=== PATIENT | male | born 1965 | race Caucasian/White ===

== ENCOUNTER → 2016-04-14 | Outpatient (CLI) | payer OTHER ==
--- NOTE | 2016-04-14 08:22 | CT ---
EXAMINATION TYPE: CT sinus wo con DATE OF EXAM: 04/14/2016 7:34 AM COMPARISON: NONE HISTORY: Chronic [id number] DLP: 544.[address] of the paranasal sinuses was performed in the axial and coronal planes. Bone and soft tissue settings are submitted. Noted are changes of medial maxillary antrectomy bilaterally and partial ethmoidectomy. There is near complete opacification of the right maxillary sinus with mucoperiosteal thickening of t he left maxillary sinus. There is near complete opacification of the ethmoid and frontal sinuses. Mod erate opacification is noted of the sphenoid sinuses. Underlying polyposis is not excluded. The nasal septum is midline. No bony destructive changes are seen within the field of view. IMPRESSION: Severe pansinusitis. Underlying polyposis is not excluded.
== END | disposition home or self-care (01) ==
LOC: RADCTMAIN 07:04
PROVIDERS: ATTEND Otolaryngology
DX: J32.4 Chronic pansinusitis (principal); J32.9 Chronic sinusitis, unspecified
CPT/HCPCS: 70486

== ENCOUNTER 2016-05-14 09:35 | Day surgery (SDC) | payer OTHER ==
[2016-05-13 07:43] VITALS: BMI 26.6
[~2016-05-14 09:35] MED LIST: DEXAMETHASONE SOD PHOSPHATE 10 MG/ML 1 ML VIAL IV ONE; DEXAMETHASONE SOD PHOSPHATE 4 MG/ML 1 ML VIAL IV ONE; FAMOTIDINE 20 MG/2 ML VIAL IV ONE; LACTATED RINGERS 1,000 ML IV SCH; MIDAZOLAM 2 MG/2 ML VIAL IV PRN; ONDANSETRON 4 MG/2 ML VIAL IVP ONE; ceFAZolin 1,000 MG in DEXTROSE/WATER 1 50ML.BAG IV ONE
[2016-05-14] MEDS ORDERED: LACTATED RINGERS 1,000 ML IV ONE (09:54)
[2016-05-14] MEDS: OXYMETAZOLINE 0.05% NASL SPRAY 15 ML NASAL ONE ×5 (09:55→10:14)
[2016-05-14] MEDS ORDERED: LIDOCAINE 1%-EPI 1:100,000 20 ML VIAL SUBMUCOSAL ONE ×3 (10:37→11:00)
[2016-05-14] MEDS ORDERED: SUCCINYLCHOLINE CHLORIDE 100 MG/5 ML SYR IV ONE (10:38)
[2016-05-14] MEDS ORDERED: GLYCOPYRROLATE 0.2 MG/ML 2 ML VIAL ONE (10:38)
[2016-05-14] MEDS ORDERED: fentaNYL (PF) 50 MCG/ML 2 ML AMP ONE (10:38)
[2016-05-14] MEDS ORDERED: MIDAZOLAM 2 MG/2 ML VIAL ONE (10:38)
[2016-05-14] MEDS ORDERED: PROPOFOL 10 MG/ML 20 ML VIAL IV ONE (10:38)
[2016-05-14] MEDS ORDERED: LIDOCAINE 1% INJ 10MG/ML (20 ML MDV) ONE (10:38)
--- NOTE | 2016-05-14 11:49 | P.OP ---
Date of Procedure: 05/14/16 Preoperative Diagnosis: Chronic sinusitis Sinonasal polyposis Inferior turbinate hypertrophy Postoperative Diagnosis: Same Procedure(s) Performed: Bilateral endoscopic sinus surgery with polypectomy including bilateral maxillary antrostomy with removal of tissue from the maxillary sinuses, bilateral anterior and posterior ethmoidectomy, balloon sinus plasty of the bilateral sphenoid and frontal sinuses with exploration Outfracture and submucous resection of the inferior turbinates Anesthesia: MATHEUS Surgeon: Andrae Melissa Estimated Blood Loss (ml): 20 Pathology: other (Sinus contents/polyps) Condition: stable Disposition: PACU Indications for Procedure: This is a 51-year-old white male underwent septoplasty and endoscopic sinus surgery with polypectomy about 10 years ago and he's had recurrence of polyps with nasal congestion and nasal airway obstruction as well as intermittent sinusitis. Computed tomography scan shows evidence of previous surgery as well as evidence of inflammation and chronic sinusitis throughout the sinuses less so in the sphenoid sinuses Operative Findings: Inferior turbinate hypertrophy, sinonasal polyps throughout the sinuses especially in the middle meatus and ethmoid sinuses Description of Procedure: The patient was brought in the operative suite and placed in a supine position. Patient underwent induction of general anesthesia with oral endotracheal intubation without difficulty. The patient was prepped and draped in usual aseptic fashion. Orbits were in the operating field for monitoring throughout the case. Computed tomography scan on computer screen for review also throughout the case. 1% lidocaine with 1 100,000 epinephrine was infused submucosally lateral nasal morse anterior tips the middle turbinates and polyps themselves. Instructions inferior turbinates were infractured with [place] elevator partial submucous resection inferior turbinates performed with the Cob[place] wand ablating a portion of the soft tissue and then outfractured with the [place] elevator. Full 0 endoscopic evaluation performed bilaterally. Polypectomy was performed with the microdebrider initially medial to the middle turbinate on the left taking care not to approach the skull base. The superior turbinate was identified and left intact. The middle turbinate was then medialized with the [place] elevator. Maxillary ostium was located and was patent. There were polyps in the maxillary sinus which were removed. Anterior and posterior ethmoidectomy with polypectomy was performed from anterior to posterior with the roof the anterior ethmoid air cells cleaned with up-biting [place] forceps. Balloon sinus plasty was then performed in the frontal and sphenoid sinuses with the entellus light guided system using the anatomic landmarks and the lighting to insure localization. The sinuses were then explored with 30 endoscope. There were some small polyps removed endoscopically with straight and up-biting [place] forceps and suction. Once this was completed on the left attention was turned to the right where the procedures were followed as they had been on the right including polypectomies in the maxillary sinus anterior posterior ethmoidectomy balloon sinus plasty with exploration of the frontal and sphenoid sinuses with removal of polyps. Once this was completed a combination of standard and firm nasal pore nasal dressings were placed in the middle meatus. The patient was suctioned in oral gastric fashion. The patient allowed to emerge from general anesthesia and tolerated well was extubated operating suite and transferred to postop recovery area in satisfactory condition.
[2016-05-14 11:57] VITALS: TEMP 96.9
[2016-05-14 12:01] VITALS: RESP 16
[2016-05-14] MEDS: HYDROmorphone 1 MG/ML 1 ML SYRINGE IVP PRN ×2 (12:27→12:32)
[2016-05-14 13:54] VITALS: BP 133/87; PULSE 57
== END 2016-05-14 14:15 | disposition home or self-care (01) ==
LOC: OR 09:35
PROVIDERS: ATTEND Otolaryngology
DX: J34.3 Hypertrophy of nasal turbinates (principal); J32.4 Chronic pansinusitis; J33.8 Other polyp of sinus; J45.909 Unspecified asthma, uncomplicated; K21.9 Gastro-esophageal reflux disease without esophagitis; J34.2 Deviated nasal septum; Z79.2 Long term (current) use of antibiotics; Z79.1 Long term (current) use of non-steroidal anti-inflammatories (NSAID); Z79.52 Long term (current) use of systemic steroids; Z79.899 Other long term (current) drug therapy
CPT/HCPCS: 31255; 30140; 88305; C1726; J2250; J1100; J2405; J2001; J3010; J1170; J0690; J0330; J2704

== ENCOUNTER → 2017-09-04 | Outpatient (CLI) | payer BC ==
--- NOTE | 2017-09-04 11:55 | XR ---
EXAMINATION TYPE: XR chest 2V DATE OF EXAM: 09/04/2017 COMPARISON: 10/30/2011 HISTORY: Chest pain and shortness of breath TECHNIQUE: Frontal and lateral views of the chest are obtained. FINDINGS: The previously seen left basilar opacity in the prior exam has resolved in the interim. Th ere is no focal air space opacity, pleural effusion, or pneumothorax seen. The cardiac silhouette si ze is within normal limits. The osseous structures are intact. IMPRESSION: No acute cardiopulmonary process.
== END | disposition home or self-care (01) ==
LOC: RADXRMAIN 11:24
PROVIDERS: ATTEND Family Medicine
DX: R07.9 Chest pain, unspecified (principal)
CPT/HCPCS: 71046